=== PATIENT | male | born 1965 | race Caucasian/White ===

== ENCOUNTER → 2018-02-26 | Outpatient (CLI) | payer OTHER ==
[~2018-02-26] VITALS: Ht 170.2 cm; Wt 81.7 kg
[~2018-02-26] MED LIST: ASPIR 8181 M1 PO; CARDURA4 MG PO; FENOFIBRATE160 MG PO; LISINOPRIL20 MG PO; LOPRESSOR50 PO; METFORMIN HCL500 MG PO; MULTIVITAMINS PO; NAPROSYN500 MG PO; PRAVACHOL20 MG PO; PROSCAR 5MG TABL5 MG PO; PROSTATE HEALT1 EAC1 PO
--- NOTE | ~2018-02-26 | P ---
[facility] [place] [address] PROCEDURE REPORT Name: DAMASO HUBBARD [id number] Admission: 02/26/18 Attend Phys: Pola Michel MD Discharge: Date of : 67 Report #: [id number] THIS REPORT FOR: //name// CC: Elissa Loaiza OUTPATIENT PERCUTANEOUS ENDOSCOPIC GASTROSTOMY TUBE PLACEMENT BRIEF HISTORY: The patient is a 52-year-old male with a history of ALS with progressive dysphagia, inability to handle secretions and a 60-pound weight loss for a PEG tube placement. He also describes a burning in his throat. He also uses Naprosyn on a daily basis for pain in his knees. PREOPERATIVE DIAGNOSIS: ALS with difficulty swallowing and weight loss. POSTOPERATIVE DIAGNOSIS: Mild diffuse gastritis. MEDICATIONS: Deep sedation per anesthesia. SPECIMEN: Biopsies of gastritis. ESTIMATED BLOOD LOSS: 3 mL. PROCEDURE: Percutaneous endoscopic gastrostomy tube placement with gastric biopsy. FINDINGS: Prior to deep sedation, the procedure of PEG tube was discussed with the patient with use of a family programming internship. They all indicate they understand and desire that we proceed. With the patient in the supine position, his head and chest was raised about 30 degrees, the Olympus video endoscope was inserted in the cervical esophagus and advanced under direct vision. The scope was advanced to the esophagus. Esophageal mucosa was normal. The squamocolumnar junction was normal. In spite of his burning symptoms, no abnormalities were seen to the squamocolumnar junction. A hiatus hernia was not seen. The Z line was normal. The scope was advanced in the stomach, was examined on end view as well as retroflexed views. He has used Naprosyn, but no ulcers or significant erosive changes were seen. Due to his gastritis, biopsies were obtained to evaluate for H. pylori. Upon retroflexion, no mass lesions were seen. The pylorus, duodenal bulb and postbulbar duodenal sweep were inspected and noted to be unremarkable. The scope was withdrawn back in the stomach and the light was aimed against the anterior gastric wall. A good transilluminating light was seen. This was noted to be in the region of the epigastrium. The skin was prepped using usual sterile technique. Subsequently, the area of maximum transillumination of light, the skin was infiltrated with Xylocaine using a safetrack technique. A [address] [address] PROCEDURE REPORT Name: DAMASO HUBBARD Room #: REG CHEL Monique#: [id number] Admission: 02/26/18 Attend Phys: Pola Michel MD Discharge: Date of : 67 Report #: [id number] needle was advanced in the gastric lumen under direct endoscopic vision. The tract was infiltrated with Xylocaine. A 1 cm skin incision was made and introducing needle and stylet were advanced through the incision into the gastric lumen under direct endoscopic vision without difficulty. Subsequently, a guidewire was inserted, retrieved and pulled out the mouth. A 20-Upper Sorbian gastrostomy tube was advanced over the wire and pulled into position. The endoscope was reinserted and final adjustments were made under direct endoscopic vision. The patient tolerated the procedure well. CONDITION OF THE PATIENT UPON DISCHARGE: Following procedure, the patient was drowsy and will be discharged home when fully ambulatory. INSTRUCTIONS TO THE PATIENT AND FAMILY AT THE TIME OF DISCHARGE: We will discuss with Dr. Pearson about home health services making arrangements for patient at home. He can take liquids through the tube starting about 6 hours. He can resume his usual diet tomorrow, but needs to be cautious with swallowing due to his ALS. Ultimately, he will likely require total nutritional support through the tube. We will follow up on biopsies for HP especially in view of the fact he uses Naprosyn. If positive, he may benefit from antibiotic treatment. The patient tolerated the procedure well. <ELECTRONICALLY SIGNED> By: Pola Michel MD 02/27/18 [id number] [id number] Pola Michel MD /nt
--- NOTE | ~2018-02-26 | PATH ---
[facility] [address] [place] [address] PATHOLOGY RPT PROCEDURE Name: TIBURCIO HUBBARDIO Room #: REG [facility].#: [id number] Admission: 02/26/18 Date of : 67 Discharge: Report #: [id number] Path Case #: [id number] [facility] Accession Number: [id number] . 01 Material submitted: . GASTRITIS . 01 Clinical history: . Pre-OP DX: Dysphagia, Hx ALS Post-OP DX: Gastritis . 02 Diagnosis: Gastric mucosa, gastritis, rule out H. pylori, endoscopic biopsy: - Helicobacter pylori induced moderate active gastritis associated with intestinal metaplasia (properly controlled immunohistochemical stain performed). - Negative for atrophy, or dysplasia. . (IUV:mml; 02/28/18) QLM/02/28/2018 . 02 Electronically signed: . Martha Culver MD, Pathologist NPI- [id number] . 01 Gross description: . Received in formalin labeled "Damaso Hubbard, gastritis, rule out H. pylori," are 4 segments of smith soft tissue measuring 1.3 x 0.9 x 0.2 cm in aggregate dimensions and ranging from 0.2 to 0.4 cm in maximum dimension. The specimen is submitted entirely in cassette A1. TOB/TOB . 02 Microscopic: . . . 02 Pathologist provided ICD-10: K29.70, B96.81 . 02 CPT . 121549, [id number] Performed at: [address], [place] [id number] MD Santosh Saunders MD Phone: [phone] Performed at: [address] [id number] [address] [address] PATHOLOGY RPT PROCEDURE Name: DAMASO HUBBARD Room #: NATHAN Monqiue#: [id number] Admission: 02/26/18 Date of : 67 Discharge: Report #: [id number] Path Case #: [id number] MD Martha Culver MD Phone: [phone]
== END | disposition home or self-care (01) ==
LOC: GI 07:00
DX: K29.70 Gastritis, unspecified, without bleeding (principal); B96.81 Helicobacter pylori [H. pylori] as the cause of diseases classified elsewhere; K31.89 Other diseases of stomach and duodenum; I10 Essential (primary) hypertension; E78.5 Hyperlipidemia, unspecified; E11.9 Type 2 diabetes mellitus without complications; N40.0 Benign prostatic hyperplasia without lower urinary tract symptoms; Z98.890 Other specified postprocedural states; Z79.899 Other long term (current) drug therapy; Z79.82 Long term (current) use of aspirin